=== PATIENT | male | born 1965 | race Caucasian/White ===

== ENCOUNTER 2021-07-17 07:01 | Day surgery (SDC) | payer OTHER, SELFPAY ==
[~2021-07-17] VITALS: Ht 167.6 cm; Wt 78.9 kg
[2021-07-17] MEDS ORDERED: diphenhydrAMINE 50 MG/ML VIAL ONE (09:55)
[2021-07-17] MEDS ORDERED: LIDOCAINE 2% 100 MG/5 ML UJET TP ONE (09:55)
[2021-07-17] MEDS ORDERED: MIDAZOLAM 5 MG/5 ML VIAL ONE (09:55)
[2021-07-17] MEDS ORDERED: fentaNYL citrate 0.05 MG/ML VIAL ONE (09:55)
[2021-07-17] MEDS: fentaNYL citrate 0.05 MG/ML VIAL IVP ONE (10:00)
[2021-07-17] MEDS: LIDOCAINE 2% 100 MG/5 ML UJET TP ONE (10:01)
[2021-07-17] MEDS: MIDAZOLAM 2 MG/2 ML VIAL IVP ONE (10:01)
== END 2021-07-17 11:10 | disposition home or self-care (01) ==
LOC: MDS 07:01 → MMU 07:01 → MDS 11:10
PROVIDERS: ATTEND Internal Medicine Gastroenterology
DX: Z12.11 Encounter for screening for malignant neoplasm of colon (principal); K63.5 Polyp of colon; K57.30 Diverticulosis of large intestine without perforation or abscess without bleeding; I10 Essential (primary) hypertension; K52.9 Noninfective gastroenteritis and colitis, unspecified; Z79.899 Other long term (current) drug therapy
CPT/HCPCS: 45380; 45385; 87426; J2250; J3010; 88305; J1200